=== PATIENT | male | born 1935 | race Two or more races ===

== ENCOUNTER 2018-01-06 03:51 | Inpatient (IN) | payer OTHER ==
[2018-01-06] VITALS (64 sets, daily range): BP systolic 79–151; BP diastolic 46–104
[~2018-01-06] VITALS: Ht 167.6 cm; Wt 60.8 kg
[2018-01-06] MEDS ORDERED: FEE PK DOSING 1 MIN EA MC ONE (03:53)
[2018-01-06] MEDS ORDERED: ACETAMINOPHEN 650 MG/SUPP.RECT RC ONE ×2 (03:58→04:00)
[2018-01-06] MEDS ORDERED: IV NS 0.9% 1,000 ML BAG IV ONE (04:00)
[2018-01-06] MEDS ORDERED: CEFEPIME 1 GM in IV D5W 50 ML IV ONE (04:00)
[2018-01-06] MEDS ORDERED: VANCOMYCIN 1 GM in IV D5W 250 ML IV ONE (04:00)
--- NOTE | 2018-01-06 04:00 | NUR ---
PT BIBA#102 FROM HOME, PT STATES PT WAS DIAGNOSED WITH A UTI 2 DAYS AGO AND STATES HE IS MORE ALTERED THAN USUAL TODAY. PT AO (BASELINE PER ) NONVERBAL. RR EVEN AND UNLABORED. NO SOB NOTED. NAD NOTED. NO NVD AT THIS TIME. PT GOWNED AND PLACED ON MONTOR. DR. AMARO AT BEDSIDE FOR EVAL. PER RA PLACED IV ON LEFT FA 20G INTACT AND PATENT.
[2018-01-06] MEDS ORDERED: CEFEPIME 1 GM VIAL ONE (04:12)
--- NOTE | 2018-01-06 04:23 | NUR ---
RADIOLOGY AT BEDSIDE FOR CXR
[2018-01-06 04:40] LABS: BASOPHILS # (AUTO) 0.1 /CMM (0.0-0.2); BASOPHILS % (AUTO) 0.5 % (0.0-2.0); EOSINOPHILS % (AUTO) 0.5 % (0.0-6.0); HEMATOCRIT 37 % (39-51); HEMOGLOBIN 12.4 g/dL (13.5-17.5); LYMPHOCYTES # (AUTO) 0.6 /CMM (0.8-4.8); MEAN CORPUSCULAR HGB CONC 33 g/dl (31.0-36.0); MEAN CORPUSCULAR VOLUME 88 fL (80-96); MONOCYTES % (AUTO) 10.2 % (2.0-12.0); NEUTROPHILS % (AUTO) 82.8 % (43.0-81.0); PLATELET COUNT (AUTO) 248 /CMM (150-450); RDW COEFFICIENT OF VARIATION 14.3 (11.5-15.0); RED BLOOD CELL COUNT(AUTO) 4.22 MIL/uL (4.5-6.0); WHITE BLOOD COUNT (AUTO) 9.7 K/uL (4.3-11.0)
--- NOTE | 2018-01-06 04:43 | NUR ---
PT RETURNED FROM CT.
[2018-01-06 04:58] LABS: INR 0.93 (0.87-1.13)
[2018-01-06 05:00] LABS: ALANINE AMINOTRANSFERASE 26 U/L (12-78); ALBUMIN 3.5 g/dL (3.4-5.0); ALKALINE PHOSPHATASE 44 U/L (46-116); ASPARTATE AMINOTRANSFERASE 20 U/L (15-37); BILIRUBIN,DIRECT 0.1 mg/dL (0.0-0.2); BILIRUBIN,TOTAL 0.4 mg/dL (0.2-1.0); CALCIUM, SERUM 9.1 mg/dL (8.5-10.1); CARBON DIOXIDE 19 mmol/L (21-32); CHLORIDE 100 mmol/L (98-107); CREATININE 1.5 mg/dL (0.6-1.3); GLUCOSE 221 mg/dL (74-106); POTASSIUM 4.1 mmol/L (3.5-5.1); SODIUM SERUM 137 mmol/L (136-145); TOTAL PROTEIN, SERUM 7.3 g/dL (6.4-8.2); UREA NITROGEN, BLOOD 21 mg/dL (7-18)
--- NOTE | 2018-01-06 05:00 | NUR ---
UNABLE TO COLLECTED URINE/ PLACE F/C. DR. AMARO AWARE. PER MD BUTLER TO GIVE IV ATB.
[2018-01-06 05:04] LABS: TROPONIN I 0.037 ng/mL (0.00-0.056)
--- NOTE | 2018-01-06 05:41 | NUR ---
APPLIED CONDOM CATH PER DR. GERARDO ORDERS
[2018-01-06] MEDS ORDERED: VANCOMYCIN 1 GM VIAL ONE (05:42)
--- NOTE | 2018-01-06 05:49 | NUR ---
LAB AT BEDSIDE FOR 2ND LACTIC DRAW
--- NOTE | 2018-01-06 06:06 | NUR ---
[facility] CALL[facility], AWAITING CALL BACK.
--- NOTE | 2018-01-06 06:22 | NUR ---
PT PLACED ON BIPAP PER MD, SETTINGS: 12/02 RATE 12 FI02 100%
[2018-01-06] MEDS ORDERED: KETOROLAC TROMETHAMINE INJ 30 MG/ML VIAL ONE (06:26)
--- NOTE | 2018-01-06 06:27 | NUR ---
RADIOLOGY AT BEDSIDE FOR CXR
[2018-01-06] MEDS ORDERED: IV NS 0.9% 1,000 ML BAG IV SCH (06:30)
[2018-01-06] MEDS ORDERED: KETOROLAC TROMETHAMINE INJ 30 MG/ML VIAL IV ONE (06:30)
[2018-01-06] MEDS ORDERED: ACETAMINOPHEN 650 MG/20.3 ML UDC PO PRN (06:30)
[2018-01-06] MEDS ORDERED: ONDANSETRON HCL/PF 4 MG/2 ML VIAL IVP PRN (06:30)
--- NOTE | 2018-01-06 06:45 | NUR ---
JANKI AT BEDSIDE
--- NOTE | 2018-01-06 06:55 | NUR ---
placed pt on bipap. alarms on and audible. bipap plugged into red outlet. ambu bag at bedside. Addendum: 01/06/18 at 0656 by JOY RODRIGUEZ RT Amended: Links added.
--- NOTE | 2018-01-06 06:58 | NUR ---
DR. AMARO AT BEDSIDE SPEAKING TO PT REGARDING POC. MARITZA ROSARIO AT BEDSIDE FOR TRANSLATION
[2018-01-06] MEDS ORDERED: DEXTROSE 50%-WATER 50 ML DISP.SYRIN IV PRN (07:00)
--- NOTE | 2018-01-06 07:22 | NUR ---
PATIENT ON BED, ASLEEP. VSS. ON CPAP
[2018-01-06] MEDS ORDERED: FENTANYL PF 100MCG/2ML AMPUL IV PRN (07:30)
[2018-01-06] MEDS ORDERED: GLIP10TA11 PO (07:31)
[2018-01-06] MEDS ORDERED: LOSA25TA13 PO (07:31)
[2018-01-06] MEDS ORDERED: AMLO5TAB7 PO (07:31)
[2018-01-06] MEDS ORDERED: METF-442 PO (07:31)
[2018-01-06] MEDS ORDERED: ATEN25TA PO (07:31)
[2018-01-06 07:38] LABS: ABG BASE EXCESS -13.9 mmol/L; ABG OXYGEN SATURATION 99.3 % (92.0-98.5); ABG PCO2 23.1 mmHg (35.0-45.0); ABG PH 7.289 (7.350-7.450); ABG PO2 542.3 mmHg (75.0-100.0); AaDO2 147.6 mmHg; COHb 0.3 % (0.5-1.5); MetHb 0.8 % (0.0-1.5); O2Hb 98.2 % (94.0-97.0); SITE, ABG Right Radial; VENT MODE, BG 15/5 100% rr12
[2018-01-06] MEDS ORDERED: PANTOPRAZOLE 40 MG TABLET.DR PO SCH (09:00)
[2018-01-06] MEDS ORDERED: IV NS 0.9% 1,000 ML IV PRN (09:30)
--- NOTE | 2018-01-06 09:58 | NUR ---
ICU/RN - Admission Pt admitted to ICU from ER via [facility] with dx Sepsis. Pt noted with nonbloody emesis x1, aspiration precautions maintained. Administered Zofran 4mg IVP as ordered. Pt responsive to painful stimuli. No s/s of pain or discomfort. Pt to be placed on BiPap 15/5 Rate 12 Fio2 100%. Kept NPO as ordered. IV patent and intact. Safety and comfort measures in place. Will continue ot monitor pt closely.
--- NOTE | 2018-01-06 10:07 | NUR ---
PATIENT TRANSPORTED TO ICU. VSS
--- NOTE | 2018-01-06 10:10 | NUR ---
ICU/RN - Notes Walker catheter 14 burmese inserted with urine return and drained to gravity.
[2018-01-06] MEDS: BLOOD SUGAR DIAGNOSTIC 1 EACH STRIP IN SCH ×4 (10:15→21:17)
[2018-01-06] MEDS: IV NS 0.9% 1,000 ML IV PRN ×3 (10:16→19:36)
--- NOTE | 2018-01-06 10:16 | NUR ---
ICU/RN - Notes Received order from Tyrone Mix READING INSTRUCTOR to give 1L NS bolus, pt's recent lactic acid 10.9.
[2018-01-06] MEDS: ACETAMINOPHEN 650 MG/SUPP.RECT RC PRN (10:41)
--- NOTE | 2018-01-06 10:41 | NUR ---
ICU/RN - Notes Pt noted with rectal temperature 102 F, administered Tylenol suppository as ordered. Cooling measures in place. Will reassess temperature accordingly.
--- NOTE | 2018-01-06 11:00 | NUR ---
ICU/RN - Notes Pt's and family at bedside, with updates provided regarding plan of care.
[2018-01-06] MEDS: PIPERACILLIN /TAZOBACTAM 2.25 G in IV D5W 50 ML IV SCH ×3 (11:36→23:42)
[2018-01-06 11:45] LABS: APPEARANCE,URINE TURBID (CLEAR); BILIRUBIN,URINE NEGATIVE (NEGATIVE); BLOOD, URINE 3+ Ery/uL (NEGATIVE); COLOR,URINE YELLOW (YELLOW); KETONES,URINE TRACE (NEGATIVE); LEUKOCYTE ESTERASE ,URINE NEGATIVE (NEGATIVE); NITRITE, URINE NEGATIVE (NEGATIVE); PH,URINE 5.5 (5.0-8.0); PROTEIN,URINE NEGATIVE (NEGATIVE); UGLUCOSE 2+ mg/dL (NEGATIVE); UROBILINOGEN,URINE 0.2 EU/dL (0.2)
[2018-01-06 11:51] LABS: BACTERIA,URINE 2+ /HPF (None Seen); MUCUS,URINE Few /LPF (None Seen); URINE AMORPHOUS URATE Few /HPF (None Seen)
[2018-01-06] MEDS ORDERED: PIPERACILLIN /TAZOBACTAM 3.375 G in IV D5W 50 ML IV SCH (12:00)
[2018-01-06] MEDS ORDERED: IV NS 0.9% 1,000 ML IV ONE (12:30)
--- NOTE | 2018-01-06 12:35 | NUR ---
ICU/RN - Notes Ian Mix NP made aware of pt's lactic acid 11.8, and now hypotensive with sBP's in 80s. Received orders to give another 1L NS bolus, and recheck lactic post infusion. Will carry out MD orders.
[2018-01-06] MEDS: INSULIN REGULAR, HUMAN 100 UNIT/ML 3 ML VIAL SQ PRN (12:50)
--- NOTE | 2018-01-06 13:19 | NUR ---
ICU/RN - Notes Pt's BP 79/43 despite ongoing 2nd liter NS bolus + maintenance IVF @ 125ml/hr. Ian Mix CAKE MIXER paged, awaiting for call back.
--- NOTE | 2018-01-06 13:41 | NUR ---
ICU/RN - Notes 1L NS bolus completed, received new orders to give 500 ml bolus. Pt's current BP 86/55.
[2018-01-06] MEDS ORDERED: IV NS 0.9% 500 ML IV ONE (14:00)
[2018-01-06] MEDS ORDERED: IV LR 500 ML IV ONE ×2 (15:00→16:00)
--- NOTE | 2018-01-06 15:06 | NUR ---
ICU/RN - Notes Dr Clark at bedside for evaluation, speaking with family. BP 86/46 at this time, received order to give 500ml LR bolus. Will carry out.
[2018-01-06 15:11] LABS: ALBUMIN 2.5 g/dL (3.4-5.0); CALCIUM, SERUM 7.3 mg/dL (8.5-10.1); CARBON DIOXIDE 15 mmol/L (21-32); CHLORIDE 108 mmol/L (98-107); CREATININE 1.8 mg/dL (0.6-1.3); GLUCOSE 138 mg/dL (74-106); MAGNESIUM 2.3 mg/dL (1.8-2.4); PHOSPHORUS 2.2 mg/dL (2.5-4.9); POTASSIUM 3.8 mmol/L (3.5-5.1); SODIUM SERUM 141 mmol/L (136-145); TOTAL PROTEIN, SERUM 5.2 g/dL (6.4-8.2); UREA NITROGEN, BLOOD 22 mg/dL (7-18)
--- NOTE | 2018-01-06 15:19 | NUR ---
ICU/RN - Notes Pt still remains hypotensive with ongoing boluses. Lactic acid 9.0 and ABG results relayed to Tyrone Mix NP. Awaiting for orders.
[2018-01-06 15:29] LABS: ALKALINE PHOSPHATASE 103 U/L (46-116)
[2018-01-06 15:31] LABS: ALANINE AMINOTRANSFERASE 253 U/L (12-78); ASPARTATE AMINOTRANSFERASE 567 U/L (15-37)
[2018-01-06 16:23] LABS: HEMATOCRIT 35 % (39-51); HEMOGLOBIN 11.6 g/dL (13.5-17.5); LYMPHOCYTES # (AUTO) 0.4 /CMM (0.8-4.8); LYMPHOCYTES % (AUTO) 4.6 % (20.0-44.0); MEAN CORPUSCULAR HGB CONC 33 g/dl (31.0-36.0); MEAN CORPUSCULAR VOLUME 89 fL (80-96); MONOCYTES # (AUTO) 0.1 /CMM (0.1-1.30); MONOCYTES % (AUTO) 0.9 % (2.0-12.0); NEUTROPHILS # (AUTO) 9.1 /CMM (1.8-8.9); NEUTROPHILS % (AUTO) 94.5 % (43.0-81.0); RDW COEFFICIENT OF VARIATION 14.6 (11.5-15.0); WHITE BLOOD COUNT (AUTO) 9.6 K/uL (4.3-11.0)
[2018-01-06 16:25] LABS: PLATELET COUNT (AUTO) 86 /CMM (150-450)
[2018-01-06 16:28] LABS: BAND % (MANUAL) 21 % (0.0-5.0); LYMPHOCYTES % (MANUAL) 3 % (16-48); METAMYELOCYTES % 2 % (0-0); NEUTROPHILS % (MANUAL) 74 (42-76)
--- NOTE | 2018-01-06 16:28 | NUR ---
ICU/RN - Notes Tyrone Mix MANAGER PEDIATRIC notified that pt's bp 87/57 post boluses. Per MANAGER PEDIATRIC, start levophed to keep MAP > 65 and SBP > 90. Dr Silvano Plasencia at bedside for central line insertion. MD also wants CVP monitoring.
[2018-01-06 16:30] LABS: INR 1.16 (0.87-1.13)
[2018-01-06] MEDS ORDERED: NOREPINEPHRINE 16 MG in IV D5W 500 ML IV PRN (16:30)
--- NOTE | 2018-01-06 19:20 | NUR ---
RN NOTES PT RESTING ON BED WITH BIPAP 15/5 RATE 12 FIO2 40% TOLERATING WELL SATING AT 100% ST HR 109 IN TELE MONITOR NO FACIAL COMPLAIN OF PAIN TRYING TO OPEN EYES BUT PT STILL LETHARGIC. BILATERAL BREATH SOUND DIMINISHED. RESPONSIVE TO TACTILE STIMULI ABLE TO NOD WHEN TO ANSWER YES OR NO. DENIES PAIN. NO EMESIS AT THIS TIME. IV SITE ON RIJ WITH LEVOPHED @ 3MCG/MIN AND NS @ 125 CC/HR RUNNING WELL. IV SITE ON LFA G 20 INTACT AND PATENT. WITH CVP @ 8 CALIBRATED WITH GOOD WAVE FORM. F/C DRAINED WITH YELLOW COLOR URINE. ABDOMEN IS TENDER. WITH GOOD PEDAL PULSES. OFFLOADED EXT WITH PILLOWS. KEPT PT CLEAN AND COMFORTABLE IN BED. WILL FREQ. MONITOR.
--- NOTE | 2018-01-06 21:22 | NUR ---
PT RECEIVED ON BIPAP. NO RESP DISTRESS NOTED. PT TOLERATING SETTINGS. WILL CONTINUE TO MONITOR. Addendum: 01/06/18 at 2123 by ILANA YO RT Amended: Links added.
[2018-01-06] MEDS: VANCOMYCIN 0.75 GM in IV D5W 250 ML IV SCH (22:40)
[2018-01-07] VITALS (66 sets, daily range): BP systolic 85–168; BP diastolic 51–96
[2018-01-07] MEDS: BLOOD SUGAR DIAGNOSTIC 1 EACH STRIP IN SCH ×6 (01:47→22:21)
[2018-01-07] MEDS: PIPERACILLIN /TAZOBACTAM 2.25 G in IV D5W 50 ML IV SCH ×4 (05:09→23:48)
[2018-01-07 05:11] LABS: HEMATOCRIT 35 % (39-51); HEMOGLOBIN 11.4 g/dL (13.5-17.5); LYMPHOCYTES # (AUTO) 1.5 /CMM (0.8-4.8); LYMPHOCYTES % (AUTO) 6.9 % (20.0-44.0); MEAN CORPUSCULAR HGB CONC 33 g/dl (31.0-36.0); MEAN CORPUSCULAR VOLUME 88 fL (80-96); MONOCYTES # (AUTO) 1.3 /CMM (0.1-1.30); MONOCYTES % (AUTO) 5.9 % (2.0-12.0); NEUTROPHILS # (AUTO) 18.9 /CMM (1.8-8.9); NEUTROPHILS % (AUTO) 87.2 % (43.0-81.0); PLATELET COUNT (AUTO) 88 /CMM (150-450); RDW COEFFICIENT OF VARIATION 14.7 (11.5-15.0); RED BLOOD CELL COUNT(AUTO) 3.94 MIL/uL (4.5-6.0); WHITE BLOOD COUNT (AUTO) 21.7 K/uL (4.3-11.0)
[2018-01-07 05:23] LABS: CALCIUM, SERUM 6.9 mg/dL (8.5-10.1); CARBON DIOXIDE 17 mmol/L (21-32); CHLORIDE 107 mmol/L (98-107); CREATININE 1.8 mg/dL (0.6-1.3); GLUCOSE 94 mg/dL (74-106); MAGNESIUM 1.3 mg/dL (1.8-2.4); POTASSIUM 4.2 mmol/L (3.5-5.1); SODIUM SERUM 141 mmol/L (136-145); UREA NITROGEN, BLOOD 21 mg/dL (7-18)
[2018-01-07 05:27] LABS: CHOLESTEROL 84 mg/dL (<200); HDL CHOLESTEROL 31 mg/dL (40-60); LDL 35 mg/dL (0-99); THYROID STIMULATING HORMONE 0.499 uIU/mL (0.358-3.74); TRIGLYCERIDES 95 mg/dL (30-150)
[2018-01-07 05:29] LABS: BAND % (MANUAL) 3 % (0.0-5.0); LYMPHOCYTES % (MANUAL) 11 % (16-48); MONOCYTES % (MANUAL) 9 % (0-11.0); NEUTROPHILS % (MANUAL) 77 (42-76)
[2018-01-07] MEDS: IV NS 0.9% 1,000 ML IV PRN ×3 (05:35→23:50)
--- NOTE | 2018-01-07 07:00 | NUR ---
RN NOTES PT STILL ON BIPAP ORDERED SETTING. RESPONSIVE TO NAME. NON VERBAL. TELE MONITOR REMAINED ST HIGHEST 130'S AFTER DOING BED BATH. AFEBRILE THROUGHOUT THE SHIFT. IV SITE ON LFA G 20 SL AND RIJ RUNNING WITH NS @ 125 CC/HR, ON LEVOPHED @ 2MCG/MIN. AND CVP @ 8 LABELLED AND CALIBRATED WITH GOOD WAVE FORM IV SITE INTACT AND PATENT. NO S/S OF HYPO OR HYPERGLYCEMIA. F/C DRAINED VIA GRAVITY. KEPT PT CLEAN AND DRY/ OFFLOADED EXT WITH PILLOWS. WILL ENDORSED CONTINUITY OF CARE TO AM NURSE.
--- NOTE | 2018-01-07 07:30 | NUR ---
MACHINE CLOTH TRIMMER AM NOTES PT IN BED, STILL ON BIPAP ORDERED SETTING. LETHARGIC, NON VERBAL. RESPONDS TO NAME, ON BEDSIDE MONITOR READING ST HR 110. TEMPERATURE AT 100.5, COOLING MEASURE APPLIED, IV SITE ON LFA G 20 SL AND RIJ RUNNING WITH NS @ 125 CC/HR, ON LEVOPHED @ 2MCG/MIN. CVP @ 8 LABELLED AND CALIBRATED WITH GOOD WAVE FORM. BOTH IV SITE CLEAR. CDI DRESSINGS. NO S/S OF HYPO OR HYPERGLYCEMIA. F/C DRAINED VIA GRAVITY, ADEQUATE. WILL TURN AND REPOSITION Q 2 HOURS. OFFLOADED EXT WITH PILLOWS. WILL CONT TO MONITOR.
[2018-01-07 08:14] LABS: ABG BASE EXCESS -9.2 mmol/L; ABG OXYGEN SATURATION 98.3 % (92.0-98.5); ABG PCO2 24.4 mmHg (35.0-45.0); ABG PH 7.384 (7.350-7.450); ABG PO2 160.3 mmHg (75.0-100.0); AaDO2 96.8 mmHg; COHb 0.3 % (0.5-1.5); MetHb 0.5 % (0.0-1.5); O2Hb 97.5 % (94.0-97.0); SITE, ABG Right Radial; VENT MODE, BG 15/5 R12 40%
--- NOTE | 2018-01-07 08:23 | NUR ---
POST ABG RESULTS PATIENT REMOVED FROM BIPAP AND PLACED ON 3L N/C LICHA WELL. RN MAYURI NOTIFIED
[2018-01-07] MEDS: PANTOPRAZOLE 40 MG VIAL IV SCH (08:50)
[2018-01-07 09:07] LABS: ALBUMIN 2.6 g/dL (3.4-5.0); BILIRUBIN,DIRECT 0.5 mg/dL (0.0-0.2); TOTAL PROTEIN, SERUM 5.7 g/dL (6.4-8.2)
--- NOTE | 2018-01-07 09:30 | NUR ---
BOOK CLEANER NOTES 09 - BS CHECK 82 MG/DL. SOFIA JUNE NP AT BEDSIDE EARLIER. DR CONNOR AT BEDSIDE EARLIER. Addendum: 01/07/18 at 1204 by MAYURI LITTLEJOHN RN ADDENDUM DR. AGUAYO AT BEDSIDE EARLIER ORDERED ABG POST BIPAP.
[2018-01-07 10:14] LABS: ABG BASE EXCESS -7.5 mmol/L; ABG OXYGEN SATURATION 93.9 % (92.0-98.5); ABG PCO2 27.3 mmHg (35.0-45.0); ABG PH 7.388 (7.350-7.450); ABG PO2 69.3 mmHg (75.0-100.0); AaDO2 112.5 mmHg; COHb 0.3 % (0.5-1.5); MetHb 0.2 % (0.0-1.5); O2Hb 93.4 % (94.0-97.0); SITE, ABG Right Radial; VENT MODE, BG 3L N/C
--- NOTE | 2018-01-07 10:38 | NUR ---
ICU NOTES MAGNESIUM IV BAG #1 STARTED.
[2018-01-07] MEDS: Magnesium 1GM/D5W 100ML PREMIX 100 ML IV SCH ×2 (10:55→11:38)
--- NOTE | 2018-01-07 11:38 | NUR ---
ICU NOTES MAGNESIUM IV BAG #2 STARTED.
--- NOTE | 2018-01-07 12:30 | NUR ---
ICU NOTES CVP READING AT 2. SINUS TACH HR 120 FLUSHED AND CALIBRATED 3X. CHARGE NURSE AWARE.
--- NOTE | 2018-01-07 12:36 | NUR ---
REAL ESTATE INSTRUCTOR NOTES STARTED ZOSYN IV ACCUCHECK DONE. BS 105 MG/DL.
--- NOTE | 2018-01-07 12:45 | NUR ---
COSTUME DESIGNER NOTES CVP READING RECHECKED AT 3-4. SINUS TACH HR 120
[2018-01-07] MEDS: VANCOMYCIN 0.75 GM in IV D5W 250 ML IV SCH (17:04)
--- NOTE | 2018-01-07 19:02 | NUR ---
SUPERVISOR FORMING DEPARTMENT STILL WARM TO TOUCH COOLING MEASURES DONE MONITORED CLOSELY ENDORSED TO NOD
--- NOTE | 2018-01-07 19:20 | NUR ---
RN NOTES PT ASLEEP WELL ON BED WITH O2 3LPM VIA NC TOLERATED WELL SATING 98%. LATEST TEMP 98.0 WARMTH TO TOUCH. DENIES PAIN. PT IS RESPONSIVE TO TACTILE AND VERBAL STIMULI BUT SLOWLY VERBALIZING FEELINGS. WEAKNESS NOTES. TELE MONITOR REVEALS ST HR 121 ABDOMINAL BREATHING SHOWS. IV SITE ON LFA G 20 AND RIJ TLC RUNNING WITH NS @ 125 CC/HR INTACT AND PATENT. WITH CVP @ 4 MMHG. REPOSITIONED FOR SKIN CARE. KEPT PT CLEAN AND COMFORTABLE IN BED. OFFLOADED EXT WITH PILLOWS. WILL CONTINUE TO MONITOR.
[2018-01-07 19:34] LABS: PLATELET COUNT (AUTO) 69 /CMM (150-450)
[2018-01-07 20:27] LABS: PARTIAL THROMBOPLASTIN TIME 46 SEC (23-34)
[2018-01-07 21:22] LABS: FIBRINOGEN ACTIVITY 341 Mg/dL (213-485)
[2018-01-08] VITALS (26 sets, daily range): BP systolic 114–154; BP diastolic 55–84
[2018-01-08 00:48] LABS: D-DIMER > 35.20 mg/L(FEU (0.17-0.50)
[2018-01-08] MEDS: BLOOD SUGAR DIAGNOSTIC 1 EACH STRIP IN SCH ×6 (01:15→21:41)
--- NOTE | 2018-01-08 03:30 | NUR ---
RN NOTES PT IS MORE ALERT THAN LAST NIGHT. REMOVE BILATERAL RESTRAINT AND EDUCATE THE PT REGARDING RESTRAINT VERBALIZED UNDERSTANDING. PT IS MORE COOPERATIVE.
--- NOTE | 2018-01-08 04:00 | NUR ---
RN NOTES BEDBATH DONE PT TOLERATED WELL. SKIN REMAINED INTACT. PT SATING 96% ON O2 3LPM VIA NC. DENIES PAIN. OFFLOADED EXT WITH PILLOWS TURNED FOR REPOSITIONING AT THE SAME TIME. PT IS CLEANED AND DRY.
[2018-01-08 05:24] LABS: BASOPHILS # (AUTO) 0.1 /CMM (0.0-0.2); BASOPHILS % (AUTO) 0.4 % (0.0-2.0); HEMATOCRIT 33 % (39-51); HEMOGLOBIN 11.4 g/dL (13.5-17.5); LYMPHOCYTES # (AUTO) 0.9 /CMM (0.8-4.8); MEAN CORPUSCULAR HGB CONC 34 g/dl (31.0-36.0); MEAN CORPUSCULAR VOLUME 87 fL (80-96); MONOCYTES # (AUTO) 0.8 /CMM (0.1-1.30); MONOCYTES % (AUTO) 3.5 % (2.0-12.0); NEUTROPHILS # (AUTO) 21.1 /CMM (1.8-8.9); NEUTROPHILS % (AUTO) 92.1 % (43.0-81.0); PLATELET COUNT (AUTO) 128 /CMM (150-450); RDW COEFFICIENT OF VARIATION 14.9 (11.5-15.0); RED BLOOD CELL COUNT(AUTO) 3.84 MIL/uL (4.5-6.0); WHITE BLOOD COUNT (AUTO) 22.9 K/uL (4.3-11.0)
[2018-01-08] MEDS: PIPERACILLIN /TAZOBACTAM 2.25 G in IV D5W 50 ML IV SCH ×3 (05:25→18:06)
[2018-01-08 05:45] LABS: CALCIUM, SERUM 7.5 mg/dL (8.5-10.1); CARBON DIOXIDE 21 mmol/L (21-32); CHLORIDE 107 mmol/L (98-107); CREATININE 1.4 mg/dL (0.6-1.3); GLUCOSE 72 mg/dL (74-106); MAGNESIUM 1.6 mg/dL (1.8-2.4); POTASSIUM 3.7 mmol/L (3.5-5.1); SODIUM SERUM 140 mmol/L (136-145); UREA NITROGEN, BLOOD 17 mg/dL (7-18)
--- NOTE | 2018-01-08 06:45 | NUR ---
RN NOTES PT REMAINED IN STABLE CONDITION NO SIGNIFICANT CHANGES. PT IS MORE ALERT AND COMMUNICATIVE THAN LAST NIGHT. AFEBRILE. VS STABLE. IV SITE INTACT AND PATENT WITH CVP @ 4 MMHG. ZERO AND CALIBRATED. NO PRESSORS. IVF AT 125 CC/HE RUNNING WELL NO INFILTRATION OR INFECTION AT THE SITE . KEPT PT CLEAN AND COMFORTABLE IN BED. WILL ENDORSED CONTINUITY OF CARE TO AM NURSE.
[2018-01-08 07:09] LABS: BAND % (MANUAL) 13 % (0.0-5.0); LYMPHOCYTES % (MANUAL) 4 % (16-48); METAMYELOCYTES % 1 % (0-0); MONOCYTES % (MANUAL) 5 % (0-11.0); MYELOCYTES % 1 % (0-0); NEUTROPHILS % (MANUAL) 76 (42-76)
[2018-01-08] MEDS: PANTOPRAZOLE 40 MG VIAL IV SCH (08:24)
[2018-01-08] MEDS: IV NS 0.9% 1,000 ML IV PRN ×2 (09:17→09:24)
[2018-01-08] MEDS: Magnesium 1GM/D5W 100ML PREMIX 100 ML IV SCH ×2 (09:41→11:29)
--- NOTE | 2018-01-08 09:55 | NUR ---
SOURCING ANALYST NOTE 0720: Received patient lethargic, alert to name. On 3LPM of O2 via NC tolerated, noted with 28-32 BPM, shallow. Patient sometimes removes NC, 94% on room air. ST 120's on the monitor. With RIJ TLC intact, IVF infusing as ordered. Walker cath intact, noted with clear pale yellow urine drained to BSD. BUE edema noted, kept elevated. CVP reading 5. No S/S hypo/hyperglycemia noted at this time. 0900: S/e by Dr. Hennessy, no new order at this time. 0930: S/E by Dr. Hidalgo, verbalized to keep in ICU, if ever will transfer to [place], will do critical care transpo. 0950: No any significant changes noted at this time. Will continue to monitor. replacing Mg 1.6 with 2 bags.
[2018-01-08] MEDS: VANCOMYCIN 0.75 GM in IV D5W 250 ML IV SCH (11:39)
[2018-01-08] MEDS: ACETAMINOPHEN 650 MG/SUPP.RECT RC PRN (15:08)
--- NOTE | 2018-01-08 16:00 | NUR ---
SPECIAL SHOPPER NOTE Patient now RR 20's and ST 100's. Patient shows more comfortable.
--- NOTE | 2018-01-08 19:25 | NUR ---
RN NOTES PT ASLEEP WELL ON BED NO ACUTE RESP DISTRESS IN ROOM AIR SATING 98%. WARMTH TO TOUCH, AFEBRILE. DENIES PAIN. PT IS RESPONSIVE TO TACTILE AND VERBAL STIMULI. TELE MONITOR REVEALS ST HR 119 WITH IV ON LFA G 20 AND RIJ TLC RUNNING WITH NS @ 125 CC/HR INTACT AND PATENT. WITH CVP @ 5 MMHG. REPOSITIONED FOR SKIN CARE. KEPT PT CLEAN AND COMFORTABLE IN BED. OFFLOADED EXT WITH PILLOWS. WILL CONTINUE TO MONITOR. CALL LIGHT KEPT WITHIN EASY REACH.
[2018-01-08] MEDS ORDERED: MEROPENEM 500 MG VIAL IV ONE (21:48)
[2018-01-08] MEDS: MEROPENEM 500 MG in IV NS 0.9% 50 ML IV SCH (21:49)
[2018-01-09] VITALS (33 sets, daily range): BP systolic 136–180; BP diastolic 71–93
[2018-01-09] MEDS: IV NS 0.9% 1,000 ML IV PRN (00:14)
[2018-01-09] MEDS: BLOOD SUGAR DIAGNOSTIC 1 EACH STRIP IN SCH ×6 (00:39→23:42)
[2018-01-09 04:47] LABS: CALCIUM, SERUM 7.7 mg/dL (8.5-10.1); CARBON DIOXIDE 15 mmol/L (21-32); CHLORIDE 106 mmol/L (98-107); CREATININE 1.3 mg/dL (0.6-1.3); GLUCOSE 118 mg/dL (74-106); MAGNESIUM 1.9 mg/dL (1.8-2.4); POTASSIUM 3.4 mmol/L (3.5-5.1); SODIUM SERUM 140 mmol/L (136-145); UREA NITROGEN, BLOOD 15 mg/dL (7-18)
--- NOTE | 2018-01-09 07:00 | NUR ---
RN NOTES PT REMAINED IN STABLE CONDITION. AOX 1 ABLE TO COMMUNICATE, LETHARGY STILL PRESENT. NO SIGNIFICANT CHANGES SHOWS. AFEBRILE. RA TOLERATED WELL SATING 96%. BED BATH DONE TOLERATED WELL. F/C DRAINED WITH ADEQUATE OUTPUT. RIJ INTACT AND PATENT NS @ 75 CC/HR ONGOING WELL CVP CALIBRATED AND LABELLED. IV ATB TOLERATED WELL. PT IS CLEANED AND DRY. ENDORSED CONTINUITY OF CARE TO AM NURSE.
--- NOTE | 2018-01-09 07:15 | NUR ---
RN INITIAL NOTES: REC'D PT ASLEEP ON BED, NOT IN ANY DISTRESS, OPENS EYES BY CALLING HIS NAME, ABLE TO COMMUNICATE BUT STILL SLEEPY. ON ROOM AIR, NO SOB THOUGH NOTED SOME WHEEZES UPON EXPIRATION. ON TELEMONITOR, HAS 2 IV LINE ACCESS: R IJ TLC, PATENT & INTACT W/ NS X 75 CC/HR INFUSING WELL AND RFA G20, SL, FLUSHING WELL. INITIAL CVP READING AT 5. HAS PATENT & INTACT FC DRAINING TO ADEQUATE URINE OUTPUT. PROVIDED COMFORT & SAFETY MEASURES. BED KEPT LOW & IN LOCKED POS. CALL LIGHT PLACED W/IN REACH. WILL CONTINUE TO MONITOR & ATTEND PT NEEDS.
[2018-01-09 08:38] LABS: BASOPHILS # (AUTO) 0.1 /CMM (0.0-0.2); BASOPHILS % (AUTO) 0.3 % (0.0-2.0); EOSINOPHILS % (AUTO) 0.1 % (0.0-6.0); HEMATOCRIT 36 % (39-51); HEMOGLOBIN 12.5 g/dL (13.5-17.5); LYMPHOCYTES % (AUTO) 3.4 % (20.0-44.0); MEAN CORPUSCULAR HGB CONC 35 g/dl (31.0-36.0); MEAN CORPUSCULAR VOLUME 86 fL (80-96); MONOCYTES # (AUTO) 0.7 /CMM (0.1-1.30); MONOCYTES % (AUTO) 2.5 % (2.0-12.0); NEUTROPHILS # (AUTO) 26.3 /CMM (1.8-8.9); NEUTROPHILS % (AUTO) 93.7 % (43.0-81.0); PLATELET COUNT (AUTO) 61 /CMM (150-450); RDW COEFFICIENT OF VARIATION 14.3 (11.5-15.0); RED BLOOD CELL COUNT(AUTO) 4.16 MIL/uL (4.5-6.0); WHITE BLOOD COUNT (AUTO) 28.1 K/uL (4.3-11.0)
[2018-01-09 08:49] LABS: ABG BASE EXCESS -11.5 mmol/L; ABG PCO2 21.5 mmHg (35.0-45.0); ABG PH 7.361 (7.350-7.450); ABG PO2 75.5 mmHg (75.0-100.0); AaDO2 48.5 mmHg; COHb 0.3 % (0.5-1.5); MetHb 0.2 % (0.0-1.5); O2Hb 93.5 % (94.0-97.0); SITE, ABG Right Radial; VENT MODE, BG ROOM AIR 21%
[2018-01-09] MEDS: PANTOPRAZOLE 40 MG VIAL IV SCH (09:17)
[2018-01-09] MEDS: INSULIN REGULAR, HUMAN 100 UNIT/ML 3 ML VIAL SQ PRN ×4 (09:23→23:45)
[2018-01-09] MEDS: MEROPENEM 500 MG in IV NS 0.9% 50 ML IV SCH ×2 (09:58→20:41)
--- NOTE | 2018-01-09 10:00 | NUR ---
RN NOTES: PT SEEN & EXAMINED BY DR. SIDDIQUI. MD WAS ABLE TO TALK TO THE PT'S DAUGHTER AT BEDSIDE. PER MD, HE WILL CALL THE OTHER DAUGHTER (CR).
[2018-01-09 10:10] LABS: BAND % (MANUAL) 15 % (0.0-5.0); LYMPHOCYTES % (MANUAL) 5 % (16-48); MONOCYTES % (MANUAL) 1 % (0-11.0); NEUTROPHILS % (MANUAL) 79 (42-76)
[2018-01-09] MEDS: Sodium Bicarbonate 100 MEQ in IV D5W 1,000 ML IV PRN (10:58)
[2018-01-09] MEDS ORDERED: Z GUARD REMEDY 2 OZ OINT TP PRN (11:00)
[2018-01-09] MEDS: NEOMY SULF/BACITRAC ZN/POLY 15 GM TUBE TP SCH ×2 (11:00→17:00)
--- NOTE | 2018-01-09 11:04 | NUR ---
WOUND CARE CONSULT PATIENT SEEN ANS SKIN INTEGRITY ASSESSMENT DONE. PLEASE SEE SUPERVISOR POST WAVE ASSESSMENT IN PCS FOR ASSESSMENT AND ALL RECOMMENDATIONS. PATIENT PRESENTS WITH BLISTERED INTACT DTI. RECOMMENDATIONS MADE AND MD IN AGREEMENT. PATIENT WITH JAQUELIN RECTAL SKIN STAINING, RECOMMEND Z GUARD FOR SKIN/MOISTURE MANAGEMENT. ALL DISCUSSED WITH NURSING AT THE BEDSIDE. FAMILY AT BEDSIDE AND AWARE OF THE DTI ON THE TIP OF THE NOSE. PATIENT WITH JUAN 15. PATIENT ON ISOFLEX JANES SPECIALTY BED FOR SKIN MANAGEMENT. Addendum: 01/09/18 at 1108 by ALBINO NÚÑEZ WNDNU Amended: Links added.
[2018-01-09] MEDS: POTASSIUM CL. PREMIX PERIPHER. 50 ML IV SCH ×2 (12:28→13:46)
--- NOTE | 2018-01-09 19:00 | NUR ---
RN CLOSING NOTES: NO ACUTE CHANGES NOTED W/IN SHIFT. PT TOLERATED ROOM AIR, NO SOB. ON TELEMONITOR, STILL ST. 2 IV LINE ACCESS: R IJ TLC, KEPT PATENT & INTACT W/ NA BICARB X 75 CC/HR INFUSING WELL AND RFA G20, SL, KEPT PATENT & INTACT, BOTH HAS NO S/SX OF INFECTION/INFILTRATION. CVP READING STILL AT 4-5. FC KEPT PATENT & INTACT. KEPT WELL RESTED. NEEDS ATTENDED. BED KEPT LOW & IN LOCKED POS. CALL LIGHT PLACED W/IN REACH. ENDORSED TO PM RN FOR [place]. DTR CR UPDATED ABOUT PT'S CONDITION AT BEDSIDE.
--- NOTE | 2018-01-09 19:30 | NUR ---
RECEIVED PATIENT IN BED, PATIENT IS RESTING, EYES ARE CLOSED BUT OPEN HIS EYE WHEN CALL HIS NAME, NON-VERBAL AT THIS TIME. VITAL SIGNS ARE WNL, CVP AT 5, NO DISTRESS NOTED SATURATION 98% ON ROOM AIR, NO S/S OF PAIN NOTED. SAFETY MEASURES IN PLACE. CONTINUE TO MONITOR
[2018-01-09] MEDS ORDERED: SODIUM BICARBONATE SYR 50 MEQ/50 ML DISP.SYRIN ONE (23:57)
[2018-01-10] VITALS (29 sets, daily range): BP systolic 137–166; BP diastolic 75–99
[2018-01-10] MEDS: Sodium Bicarbonate 100 MEQ in IV D5W 1,000 ML IV PRN ×2 (00:01→15:13)
[2018-01-10] MEDS: INSULIN REGULAR, HUMAN 100 UNIT/ML 3 ML VIAL SQ PRN ×2 (05:22→21:17)
[2018-01-10] MEDS: BLOOD SUGAR DIAGNOSTIC 1 EACH STRIP IN SCH ×4 (05:23→21:21)
[2018-01-10 05:50] LABS: BASOPHILS % (AUTO) 0.2 % (0.0-2.0); EOSINOPHILS % (AUTO) 0.3 % (0.0-6.0); HEMATOCRIT 34 % (39-51); HEMOGLOBIN 12.1 g/dL (13.5-17.5); LYMPHOCYTES # (AUTO) 1.2 /CMM (0.8-4.8); LYMPHOCYTES % (AUTO) 6.6 % (20.0-44.0); MEAN CORPUSCULAR HGB CONC 35 g/dl (31.0-36.0); MEAN CORPUSCULAR VOLUME 84 fL (80-96); MONOCYTES % (AUTO) 5.6 % (2.0-12.0); NEUTROPHILS # (AUTO) 15.6 /CMM (1.8-8.9); NEUTROPHILS % (AUTO) 87.3 % (43.0-81.0); PLATELET COUNT (AUTO) 61 /CMM (150-450); RDW COEFFICIENT OF VARIATION 14.1 (11.5-15.0); RED BLOOD CELL COUNT(AUTO) 4.07 MIL/uL (4.5-6.0); WHITE BLOOD COUNT (AUTO) 17.9 K/uL (4.3-11.0)
[2018-01-10 06:08] LABS: CALCIUM, SERUM 7.6 mg/dL (8.5-10.1); CARBON DIOXIDE 21 mmol/L (21-32); CHLORIDE 105 mmol/L (98-107); CREATININE 1.1 mg/dL (0.6-1.3); GLUCOSE 132 mg/dL (74-106); MAGNESIUM 1.4 mg/dL (1.8-2.4); POTASSIUM 2.9 mmol/L (3.5-5.1); SODIUM SERUM 140 mmol/L (136-145); UREA NITROGEN, BLOOD 12 mg/dL (7-18)
[2018-01-10 06:21] LABS: PHOSPHORUS 1.1 mg/dL (2.5-4.9)
--- NOTE | 2018-01-10 07:46 | NUR ---
CASINO SHIFT MANAGER INITIAL NOTE RN RECEIVED PATIENT IN BED, PATIENT IS RESTING, EYES ARE CLOSED PATIENT OPENS EYES WHEN AROUSED. NON-VERBAL AT THIS TIME. VITAL SIGNS ARE STABLE, CVP AT -2, NO DISTRESS NOTED SATURATION 98% ON ROOM AIR, NO S/S OF PAIN NOTED. SAFETY MEASURES IN PLACE. RN WILL CONTINUE TO MONITOR THROUGHOUT THE DAY
[2018-01-10] MEDS: MEROPENEM 500 MG in IV NS 0.9% 50 ML IV SCH (08:26)
[2018-01-10] MEDS ORDERED: POTASSIUM PHOSPHATE MM 15 MMOL in IV D5W 250 ML IV SCH (08:30)
[2018-01-10 08:45] LABS: BAND % (MANUAL) 9 % (0.0-5.0); LYMPHOCYTES % (MANUAL) 6 % (16-48); MONOCYTES % (MANUAL) 4 % (0-11.0); NEUTROPHILS % (MANUAL) 81 (42-76)
[2018-01-10] MEDS: PANTOPRAZOLE 40 MG VIAL IV SCH (10:15)
[2018-01-10] MEDS: NEOMY SULF/BACITRAC ZN/POLY 15 GM TUBE TP SCH ×2 (10:18→17:00)
[2018-01-10] MEDS: Magnesium 1GM/D5W 100ML PREMIX 100 ML IV SCH ×2 (10:18→13:31)
[2018-01-10] MEDS: POTASSIUM PHOSPHATE MM 7.5 MMOL in IV D5W 100 ML IV SCH ×2 (10:26→12:30)
[2018-01-10] MEDS: POTASSIUM CL. PREMIX PERIPHER. 50 ML IV SCH ×4 (12:42→18:34)
--- NOTE | 2018-01-10 19:30 | NUR ---
ELECTRICAL ASSEMBLY TECHNICIAN INITIAL NOTES RECEIVED PATIENT AWAKE A/OX1, FOLLOWS SIMPLE COMMANDS, NODS YES OR NO. NO RESPIRATORY DISTRESS NOTED, ON ROOM AIR SPO2 95%. SKIN WARM AND DRY TOUCH. ON TELE MONITOR SINUS TACH. WITH RIJ TLC PATENT AND INTACT, WITH D5W WITH SODIUM BICARBONATE AT 75ML/HR, TKO, AND CVP MONITORING. F/C PATENT AND INTACT DRAINING BY GRAVITY, OUTPUT CLEAR, YELLOW. WITH HEMATOMA ON NASAL BRIDGE, OPEN TO AIR, CLEAN AND DRY. HOB ELEVATED. SIDE RAILS UP AND LOCKED. BED KEPT AT LOWEST POSITION. PENDING [facility]NA[facility] TRANSFER. WILL CONTINUE TO MONITOR.
--- NOTE | 2018-01-10 19:47 | NUR ---
rn note patient stable at this time rn spoke with patient family updated them on plan of care ( and daughter) patient is to be transferred to [facility] today for continuation of care. patient in bed no shortness of breath noted at this time or throughout the day. patient clean dry and intact iv in place no issues noted. continuation of care endorsed to pm rn , discharge started and intiated via am rn .
--- NOTE | 2018-01-10 20:20 | NUR ---
HOTEL REGISTRATION CLERK NOTE RECEIVED CALL FROM HAY RAKE OPERATOR HILTON, PATIENT TO GO TO [facility] TO ROOM 5227 TELE FLOOR AND TRANSPORT TO ARRIVE IN 60-90MINS. DAUGHTER CR MADE AWARE, VERBALIZED APPRECIATION FOR CALL. PER DAUGHTER PATIENT HAS NO BELONGINGS, ALL BELONGINGS SENT HOME WITH MOTHER. PENDING TRANSFER. WILL CONTINUE TO MONITOR.
[2018-01-10] MEDS ORDERED: MEROPENEM 1 G in IV NS 0.9% 100 ML IV SCH (21:00)
--- NOTE | 2018-01-10 21:04 | NUR ---
CEILING INSTALLER NOTE CALLED [facility], GAVE REPORT TO MARITZA KOCH.
--- NOTE | 2018-01-10 22:00 | NUR ---
ROCKET SCIENTIST CLOSING NOTES PATIENT IN STABLE CONDITION. NO RESPIRATORY DISTRESS NOTED. TWO ENGINEERING PROGRAMMER AT BEDSIDE. REPORT GIVEN. PATIENT TRANSFERRED TO [facility].
== END 2018-01-10 23:38 | disposition short-term general hospital (02) | DRG 871 ==
LOC: ER 03:52 → ICU 08:10
PROVIDERS: ADMIT Registered Nurse; ATTEND Nurse Practitioner Acute Care
PROC: 5A09457 Assistance with Respiratory Ventilation, 24-96 Consecutive Hours, Continuous Positive Airway Pressure (ICD-10-PCS; principal; 2018-01-06)
PROC: 05HM33Z Insertion of Infusion Device into Right Internal Jugular Vein, Percutaneous Approach (ICD-10-PCS; 2018-01-06)
PROC: B543ZZA Ultrasonography of Right Jugular Veins, Guidance (ICD-10-PCS; 2018-01-06)
DX: A41.9 Sepsis, unspecified organism (principal); J96.01 Acute respiratory failure with hypoxia; N17.0 Acute kidney failure with tubular necrosis; K72.00 Acute and subacute hepatic failure without coma; R65.21 Severe sepsis with septic shock; J18.9 Pneumonia, unspecified organism; G92 Toxic encephalopathy; E86.0 Dehydration; E11.9 Type 2 diabetes mellitus without complications; D64.9 Anemia, unspecified; E87.2 Acidosis; N39.0 Urinary tract infection, site not specified; F03.90 Unspecified dementia, unspecified severity, without behavioral disturbance, psychotic disturbance, mood disturbance, and anxiety; E78.5 Hyperlipidemia, unspecified; I10 Essential (primary) hypertension; K76.0 Fatty (change of) liver, not elsewhere classified; F09 Unspecified mental disorder due to known physiological condition; T38.3X5A Adverse effect of insulin and oral hypoglycemic [antidiabetic] drugs, initial encounter; Y92.89 Other specified places as the place of occurrence of the external cause; D72.829 Elevated white blood cell count, unspecified; D72.825 Bandemia; B96.1 Klebsiella pneumoniae [K. pneumoniae] as the cause of diseases classified elsewhere; L89.899 Pressure ulcer of other site, unspecified stage
CPT/HCPCS: 36415; 36600; 70450-TC; 71045-TC; 76705-TC; 80048-TC; 80053-TC; 80061-TC; 80076-TC; 80202-TC; 81000-TC; 82010-TC; 82803-TC; 82962-TC; 83605-TC; 83690-TC; 83735-TC; 84100-TC; 84443-TC; 84484-TC; 85025-TC; 85378-TC; 85396; 85610-TC; 85730-TC; 87040-TC; 87070-TC; 87081-TC; 87086-TC; 87186-TC; 87400; 94762-TC; 94799-TC; A4216; A4606; A6402; C1751; C9113; J0692; J1815; J1885; J2185; J2405; J2543; J3010; J3370; J3475; J3480; J3490; J7030; J7040; J7060; J7070; J7120; Z7610